=== PATIENT | female | born 1945 | race Caucasian/White ===

== ENCOUNTER 2016-10-08 20:16 | Emergency (ER) | payer MEDICARE ==
[~2016-10-08 20:16] MED LIST: ESCI10TA PO; LORA2TAB95 PO
--- NOTE | 2016-10-08 20:40 | NUR ---
CALLED [facility] TRIAGE; INFORMED BY ADMITTING "PT LEFT; HAD ARTHRITIC PAIN"
== END 2016-10-08 20:41 | disposition left against medical advice (07) ==
LOC: ER 20:19
DX: Z53.21 Procedure and treatment not carried out due to patient leaving prior to being seen by health care provider (principal)